=== PATIENT | male | born 1945 | race Caucasian/White ===

== ENCOUNTER → 2016-12-27 | Outpatient (CLI) | payer MEDICARE ==
[2016-12-27 18:05] LABS: Anion Gap 14 mmol/L; Blood Urea Nitrogen 19 mg/dL (9-20); Calcium 9.2 mg/dL (8.4-10.2); Carbon Dioxide 24 mmol/L (22-30); Chloride 100 mmol/L (98-107); Glucose 326 mg/dL (74-99); Non-African American GFR(MDRD) >60 (>60 ml/min/1.73 sqM); Potassium 3.9 mmol/L (3.5-5.1); Sodium 138 mmol/L (137-145)
--- NOTE | 2016-12-27 22:01 | CT ---
EXAMINATION TYPE: CT soft tissue neck w con DATE OF EXAM: 12/27/2016 6:46 PM COMPARISON: NONE HISTORY: 71-year-old male follow up nodules on remaining half of thyroid TECHNIQUE: Contiguous axial scanning of the neck performed with IV Contrast, patient injected with 10 0 mL of Omnipaque 350. Coronal/sagittal reconstructions performed. CT DLP: 437.6 mGycm Automated exposure control for dose reduction was used. 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 Visualized upper lungs are cl ear. Visualized intracranial structures, orbits and globes, paranasal sinuses, and mastoid air cells withi n normal limits. There is rightward nasal septal deviation. The nasopharynx is within normal limits. Mild hypertrophy of the bilateral palatine tonsils with punc reeves calcifications suggesting sequela of prior infection. Oropharynx otherwise clear. Slight asymmetry to the left aryepiglottic fold likely positional. Glottic and subglottic structures within normal limits. There is leftward bowing of the tracheal column due to large goiterous right lobe of the thyroid glan d. Postsurgical changes are seen along the left side of the neck of left thyroidectomy. The right lobe measures 5.5 cm wide by 5.1 cm AP by 9.4 cm craniocaudal and shows heterogeneous enhan cement with underlying cystic nodules and enhancing nodules. There is minimal 7 - 8 mm extension below the superior margin of the sternal notch. Scattered nonenlarged cervical lymph nodes are present. The submandibular and parotid glands are satisfactory. Moderate disc/endplate degenerative change mid to lower cervical spine. IMPRESSION: 1. BULKY MULTINODULAR RIGHT LOBE OF THE THYROID GLAND MEASURING UP TO 9.4 CM CAUSING MASS EFFECT AND LEFTWARD DEVIATION OF THE TRACHEA. THIS HAS MINIMAL 7 TO 8 MM OF EXTENSION BELOW THE SUPERIOR MARGIN OF THE STERNAL NOTCH. 2. STATUS POST LEFT THYROIDECTOMY.
== END | disposition home or self-care (01) ==
LOC: RADCTMAIN 17:24
PROVIDERS: ATTEND Surgery
DX: E04.2 Nontoxic multinodular goiter (principal); E07.89 Other specified disorders of thyroid; E89.0 Postprocedural hypothyroidism
CPT/HCPCS: 80048; 70491; Q9967

== ENCOUNTER 2017-02-27 19:32 | Emergency (ER) | payer MEDICARE ==
--- NOTE | 2017-02-27 20:19 | ED ---
General Adult HPI - General Chief complaint: Urogenital Stated complaint: catheter leaking Time Seen by Provider: 02/27/17 20:03 Source: patient, RN notes reviewed Mode of arrival: ambulatory Limitations: no limitations - History of Present Illness Initial comments: 71-year-old male presents to the emergency Department chief complaint of leaking urine around the catheter site. The patient states that he underwent thyroid accident yesterday. [facility]. Patient states he was having some difficulty urinating so they placed a catheter in before he was discharged today and he states that on his way home he noticed that it was leaking. Patient states that he called the hospital mainly referred here to have a new catheter placed. Patient states he does have some lower abdominal pain associated with this. Patient was found to be febrile here but he states that he has had no fever like symptoms. When asked about cough he states that he has had some phlegm. Patient denies any recent shortness of breath, chest pain, back pain, nnausea vomiting, numbness or tingling, hematuria, constipation or diarrhea, headaches or visual changes, or any other current symptoms. - Related Data Home Medications Medication Instructions Recorded Confirmed Aspirin 81 mg PO DAILY 02/27/17 02/27/17 Calcium Carbonate [Calcium] 600 mg PO BID 02/27/17 02/27/17 Levothyroxine Sodium [Synthroid] 150 mcg PO DAILY 02/27/17 02/27/17 Losartan/Hydrochlorothiazide 1 tab PO DAILY 02/27/17 02/27/17 [Losartan-Hctz 100-25 mg Tab] Metoprolol Succinate [Toprol XL] 37.5 mg PO DAILY 02/27/17 02/27/17 Tamsulosin HCl [Flomax] 0.4 mg PO DAILY 02/27/17 02/27/17 metFORMIN HCL [Glucophage] 500 mg PO BID 02/27/17 02/27/17 Previous Rx's Medication Instructions Recorded Levofloxacin [Levaquin] 500 mg PO DAILY #7 tab 02/27/17 Allergies Allergy/AdvReac Type Severity Reaction Status Date / Time Iodinated Contrast- Oral and Allergy Unknown Verified 02/27/17 19:58 IV Dye amoxicillin [From Augmentin] AdvReac Confusion Verified 02/27/17 19:58 clavulanic acid AdvReac Confusion Verified 02/27/17 19:58 [From Augmentin] iodine AdvReac Rash/Hives Verified 02/27/17 19:58 Sulfa (Sulfonamide AdvReac Rash/Hives Verified 02/27/17 19:58 Antibiotics) Review of Systems ROS Statement: Those systems with pertinent positive or pertinent negative responses have been documented in the HPI. ROS Other: All systems not noted in ROS Statement are negative. Past Medical History Past Medical History: Hypertension, Thyroid Disorder History of Any Multi-Drug Resistant Organisms: None Reported Additional Past Surgical History / Comment(s): thyroid surgery, MOIS surgery for skin cancer on face. Past Psychological History: No Psychological Hx Reported Smoking Status: Never smoker Past Alcohol Use History: None Reported Past Drug Use History: None Reported General Exam - General Exam Comments Initial Comments: General: The patient is awake and alert, in no distress, and does not appear acutely ill. Eye: Pupils are equal, round and reactive to light, extra-ocular movements are intact; there is normal conjunctiva bilaterally. No signs of icterus. Ears, nose, mouth and throat: There are moist mucous membranes and no oral lesions. Neck: The neck is supple, there is no tenderness. Thyroid incision noted with no associated erythema or drainage Cardiovascular: There is a regular rate and rhythm. No murmur, rub or gallop is appreciated. Respiratory: Lungs are clear to auscultation, respirations are non-labored, breath sounds are equal. No wheezes, stridor, rales, or rhonchi. Gastrointestinal: Soft, non-distended, non-tender abdomen without masses or organomegaly noted. There is no rebound or guarding present. No CVA tenderness. Bowel sounds are unremarkable. Back: There is no tenderness to palpation in the midline. There is no obvious deformity. No rashes noted. Musculoskeletal: Normal ROM, no tenderness, There is no pedal edema. There is no calf tenderness or swelling. Sensation intact. Pulses equal bilaterally 2+. Neurological: CN II-XII intact, There are no obvious motor or sensory deficits. Coordination appears grossly intact. Speech is normal. Skin: Skin is warm and dry and no rashes or lesions are noted. Psychiatric: Cooperative, appropriate mood & affect, normal judgment. Limitations: no limitations Course Vital Signs 02/27/17 19:40 Temperature 101.4 F H Pulse Rate 84 Respiratory 18 Rate Blood Pressure 198/88 O2 Sat by Pulse 94 L Oximetry Medical Decision Making - Medical Decision Making 71-year-old male presents for leaking around catheter site. Patient is found have a fever here as well. This time there is question of the fever is due to a possible UTI versus just reaction due to the recent procedure. At this time we will start patient on Levaquin due to the bacteria that is found in his urine with a straight catheterization. The patient is in agreement with plan all questions have been answered. This time he will be discharged. We discussed close follow-up and he stated that he understood. - Lab Data Lab Results 02/27/17 Range/Units 20:01 Urine Color Yellow Urine Appearance Clear (Clear) Urine pH 6.0 (5.0-8.0) Ur Specific [place] 1.013 (1.001-1.035) Urine Protein 1+ H (Negative) Urine Glucose (UA) Negative (Negative) Urine Ketones Negative (Negative) Urine Blood Moderate H (Negative) Urine Nitrite Negative (Negative) Urine Bilirubin Negative (Negative) Urine Urobilinogen <2.0 (<2.0) mg/dL Ur Leukocyte Esterase Large H (Negative) Urine RBC 71 H (0-5) /hpf Urine WBC 29 H (0-5) /hpf Ur Squamous Epith Cells <1 (0-4) /hpf Urine Bacteria Rare H (None) /hpf Urine Mucus Rare H (None) /hpf - Radiology Data Radiology results: report reviewed, image reviewed Disposition Clinical Impression: UTI (urinary tract infection), Catheter (urine) change required Disposition: HOME SELF-CARE Condition: Stable Instructions: Urinary Tract Infection in Men (ED) Additional Instructions: Please use medication as discussed. Please follow up with family doctor if symptoms have not improved over the next two days. Please return to the emergency room if your symptoms increase or worsen or for any other concerns. Prescriptions: Levofloxacin [Levaquin] 500 mg PO DAILY #7 tab Referrals: Bradford Ceron DO [Primary Care Provider] - 1-2 days Time of Disposition: 20:58
[2017-02-27 20:47] LABS: Appearance,Urine Clear (Clear); Bacteria,Urine Rare /hpf; Bilirubin,Urine Negative (Negative); Glucose,Urine (UA) Negative (Negative); Ketones,Urine Negative (Negative); Leukocyte Esterase,Urine Large (Negative); Mucus,Urine Rare /hpf; Nitrite,Urine Negative (Negative); Particle Count 8532; Protein,Urine 1+ (Negative); RBC,Urine 71 /hpf (0-5); Specific Gravity,Urine 1.013 (1.001-1.035); Squamous Epithelial Cell,Urine <1 /hpf (0-4); UA Billing (MACRO vs. MICRO) MICRO; Urobilinogen,Urine <2.0 mg/dL (<2.0); WBC,Urine 29 /hpf (0-5)
--- NOTE | 2017-02-27 20:53 | XR ---
EXAMINATION TYPE: XR chest 2V DATE OF EXAM: 02/27/2017 COMPARISON: NONE HISTORY: Chest pain and fever and cough TECHNIQUE: Frontal and lateral views of the chest are obtained. FINDINGS: There is mild linear density in the right midlung and left lung base. There is no heart fa ilure. Thoracic aorta is atheromatous. Heart size is normal. There is mild spurring in the thoracic s pine. IMPRESSION: Bilateral mild scarring or subsegmental atelectasis. No heart failure. No evidence of br onchopneumonia.
[2017-02-27] MEDS ORDERED: ACETAMINOPHEN TAB 500 MG TAB PO STA (21:08)
[2017-02-27 21:24] VITALS: BP 169/76; PULSE 72; RESP 20; TEMP 101.8
== END 2017-02-27 21:20 | disposition home or self-care (01) ==
LOC: EC 19:32
DX: N39.0 Urinary tract infection, site not specified (principal); T83.038A Leakage of other urinary catheter, initial encounter; R50.9 Fever, unspecified; I10 Essential (primary) hypertension; E07.9 Disorder of thyroid, unspecified; Z79.82 Long term (current) use of aspirin; Z79.84 Long term (current) use of oral hypoglycemic drugs; Z79.899 Other long term (current) drug therapy; Z88.0 Allergy status to penicillin; Z88.2 Allergy status to sulfonamides; Z91.041 Radiographic dye allergy status; Z91.09 Other allergy status, other than to drugs and biological substances; Z85.828 Personal history of other malignant neoplasm of skin; Z98.890 Other specified postprocedural states; Y73.8 Miscellaneous gastroenterology and urology devices associated with adverse incidents, not elsewhere classified
CPT/HCPCS: 51702; 71020; 81001; 87086; 99283

== ENCOUNTER 2017-12-09 18:13 | Emergency (ER) | payer MEDICARE ==
[2017-12-09] MEDS ORDERED: ONDANSETRON ODT 4 MG TAB PO STA (19:28)
[2017-12-09] MEDS ORDERED: MECLIZINE 12.5 MG TAB PO STA (19:28)
[2017-12-09] MEDS ORDERED: SODIUM CHLORIDE 0.9% 1,000 ML IV STA (19:28)
[2017-12-09 19:41] LABS: Basophils % (A) 0 %; Eosinophils # (A) 0.1 k/uL (0-0.7); Eosinophils % (A) 2 %; HCT 39.9 % (39.0-53.0); HGB 13.7 gm/dL (13.0-17.5); Lymphocytes # (A) 1.4 k/uL (1.0-4.8); Lymphocytes % (A) 17 %; MCH 29.2 pg (25.0-35.0); MCHC 34.3 g/dL (31.0-37.0); MCV 85.2 fL (80.0-100.0); Mean Platelet Volume 7.5; Monocytes # (A) 0.5 k/uL (0-1.0); Monocytes % (A) 6 %; Neutrophils % (A) 74 %; Platelet Count 247 k/uL (150-450); RBC 4.69 m/uL (4.30-5.90); RDW 12.9 % (11.5-15.5); WBC 8.1 k/uL (3.8-10.6)
--- NOTE | 2017-12-09 19:43 | ED ---
General Adult HPI - General Chief complaint: Dizziness Stated complaint: off balance/nausea Time Seen by Provider: 12/09/17 19:17 Source: patient, RN notes reviewed Mode of arrival: wheelchair Limitations: no limitations - History of Present Illness Initial comments: Patient 72-year-old male presents to the emergency room today with chief complaint of dizziness. He states that he's felt unsteady today. He does admit that over the last 5 weeks has had episodes. He states there were only lasted a few seconds at a time. He states that today starting at 5:00 he's had episode of feeling unsteady and like he cannot walk straight. He does with his maternal on stress lately. He states he had to deal with his son who got diagnosed with a PE. He states this is the reason that he was unable to follow- up the family doctor over the last 5 weeks for the symptoms himself. Patient does not that he had an episode of nausea vomiting earlier today. He denies any other complains. He states that it symptoms are worse with certain movements specifically with a movement to the right with his head with rotation. States worse when up and trying to walk better when laying down. Currently asymptomatic as he is laying in stretcher. Patient denies any recent fever, chills, shortness of breath, chest pain, back pain, abdominal pain, nausea or vomiting, numbness or tingling, dysuria or hematuria, constipation or diarrhea, headaches or visual changes, or any other complaints. - Related Data Home Medications Medication Instructions Recorded Confirmed Aspirin 81 mg PO DAILY 02/27/17 12/09/17 Levothyroxine Sodium [Synthroid] 150 mcg PO DAILY 02/27/17 12/09/17 Losartan/Hydrochlorothiazide 1 tab PO DAILY 02/27/17 12/09/17 [Losartan-Hctz 100-25 mg Tab] Metoprolol Succinate [Toprol XL] 37.5 mg PO DAILY 02/27/17 12/09/17 Tamsulosin HCl [Flomax] 0.4 mg PO DAILY 02/27/17 12/09/17 Calcium Carbonate/Vitamin D3 1 tab PO DAILY 12/09/17 12/09/17 [Calcium 500-Vit D3 600 Tablet] Allergies Allergy/AdvReac Type Severity Reaction Status Date / Time Iodinated Contrast- Oral and Allergy Unknown Verified 12/09/17 19:40 IV Dye amoxicillin [From Augmentin] AdvReac Confusion Verified 12/09/17 19:40 clavulanic acid AdvReac Confusion Verified 12/09/17 19:40 [From Augmentin] iodine AdvReac Rash/Hives Verified 12/09/17 19:40 Sulfa (Sulfonamide AdvReac Rash/Hives Verified 12/09/17 19:40 Antibiotics) Review of Systems ROS Statement: Those systems with pertinent positive or pertinent negative responses have been documented in the HPI. ROS Other: All systems not noted in ROS Statement are negative. Past Medical History Past Medical History: Hypertension, Thyroid Disorder History of Any Multi-Drug Resistant Organisms: None Reported Additional Past Surgical History / Comment(s): thyroid removed, MOIS surgery for skin cancer on face. Past Psychological History: No Psychological Hx Reported Smoking Status: Never smoker Past Alcohol Use History: None Reported Past Drug Use History: None Reported General Exam - General Exam Comments Initial Comments: General: The patient is awake and alert, in no distress, and does not appear acutely ill. Eye: Pupils are equal, round and reactive to light, extra-ocular movements are intact. No nystagmus. There is normal conjunctiva bilaterally. No signs of icterus. Ears, nose, mouth and throat: There are moist mucous membranes and no oral lesions. Neck: The neck is supple, there is no tenderness or JVD. Cardiovascular: There is a regular rate and rhythm. No murmur, rub or gallop is appreciated. Respiratory: Lungs are clear to auscultation, respirations are non-labored, breath sounds are equal. No wheezes, stridor, rales, or rhonchi. Gastrointestinal: Soft, non-distended, non-tender abdomen without masses or organomegaly noted. There is no rebound or guarding present. No CVA tenderness. Bowel sounds are unremarkable. Musculoskeletal: Normal ROM, no tenderness. Strength 5/5. Sensation intact. Pulses equal bilaterally 2+. Neurological: A&O x 3. CN II-XII intact, There are no obvious motor or sensory deficits. Coordination appears grossly intact. Speech is normal. Skin: Skin is warm and dry and no rashes or lesions are noted. Psychiatric: Cooperative, appropriate mood & affect, normal judgment. Limitations: no limitations Course Vital Signs 12/09/17 12/09/17 12/09/17 18:26 19:33 20:35 Temperature 98.8 F 97.9 F Pulse Rate 79 57 L 57 L Respiratory 18 18 16 Rate Blood Pressure 216/113 173/81 182/84 O2 Sat by Pulse 98 95 95 Oximetry 12/09/17 21:43 Temperature 98.0 F Pulse Rate 56 L Respiratory 14 Rate Blood Pressure 182/80 O2 Sat by Pulse 96 Oximetry Medical Decision Making - Medical Decision Making Patient reexamined at this time shows no signs of distress. He does admit to improvement after meclizine and Zofran here in the emergency room. Patient has been ambulatory here the emergency room for difficulty. Patient's CT and CTA reviewed are negative. Labs been reviewed. Options were discussed with patient. States he admitted rather follow-up the family physician tomorrow. Patient will be given a prescription for meclizine. He is advised close follow- up or return here to the emergency room symptoms increase worsen. - Lab Data Result diagrams: 12/09/17 19:21 12/09/17 19:21 Lab Results 12/09/17 12/09/17 12/09/17 Range/Units 19:21 19:21 19:21 WBC 8.1 (3.8-10.6) k/uL RBC 4.69 (4.30-5.90) m/uL Hgb 13.7 (13.0-17.5) gm/dL Hct 39.9 (39.0-53.0) % MCV 85.2 (80.0-100.0) fL MCH 29.2 (25.0-35.0) pg MCHC 34.3 (31.0-37.0) g/dL RDW 12.9 (11.5-15.5) % Plt Count 247 (150-450) k/uL Neutrophils % 74 % Lymphocytes % 17 % Monocytes % 6 % Eosinophils % 2 % Basophils % 0 % Neutrophils # 6.0 (1.3-7.7) k/uL Lymphocytes # 1.4 (1.0-4.8) k/uL Monocytes # 0.5 (0-1.0) k/uL Eosinophils # 0.1 (0-0.7) k/uL Basophils # 0.0 (0-0.2) k/uL PT (9.0-12.0) sec INR (<1.2) APTT (22.0-30.0) sec Sodium 141 (137-145) mmol/L Potassium 3.5 (3.5-5.1) mmol/L Chloride 99 (98-107) mmol/L Carbon Dioxide 29 (22-30) mmol/L Anion Gap 13 mmol/L BUN 16 (9-20) mg/dL Creatinine 0.91 (0.66-1.25) mg/dL Est GFR (CKD-EPI)AfAm >90 (>60 ml/min/1.73 sqM) Est GFR (CKD-EPI)NonAf 84 (>60 ml/min/1.73 sqM) Glucose 173 H (74-99) mg/dL Calcium 8.9 (8.4-10.2) mg/dL Total Bilirubin 0.7 (0.2-1.3) mg/dL AST 16 L (17-59) U/L ALT 26 (21-72) U/L Alkaline Phosphatase 56 (38-126) U/L Total Creatine Kinase 93 (55-170) U/L CK-MB (CK-2) 1.1 (0.0-2.4) ng/mL CK-MB (CK-2) Rel Index 1.2 Troponin I <0.012 (0.000-0.034) ng/mL Total Protein 6.5 (6.3-8.2) g/dL Albumin 3.9 (3.5-5.0) g/dL 12/09/17 Range/Units 19:21 WBC (3.8-10.6) k/uL RBC (4.30-5.90) m/uL Hgb (13.0-17.5) gm/dL Hct (39.0-53.0) % MCV (80.0-100.0) fL MCH (25.0-35.0) pg MCHC (31.0-37.0) g/dL RDW (11.5-15.5) % Plt Count (150-450) k/uL Neutrophils % % Lymphocytes % % Monocytes % % Eosinophils % % Basophils % % Neutrophils # (1.3-7.7) k/uL Lymphocytes # (1.0-4.8) k/uL Monocytes # (0-1.0) k/uL Eosinophils # (0-0.7) k/uL Basophils # (0-0.2) k/uL PT 10.1 (9.0-12.0) sec INR 1.0 (<1.2) APTT 22.0 (22.0-30.0) sec Sodium (137-145) mmol/L Potassium (3.5-5.1) mmol/L Chloride (98-107) mmol/L Carbon Dioxide (22-30) mmol/L Anion Gap mmol/L BUN (9-20) mg/dL Creatinine (0.66-1.25) mg/dL Est GFR (CKD-EPI)AfAm (>60 ml/min/1.73 sqM) Est GFR (CKD-EPI)NonAf (>60 ml/min/1.73 sqM) Glucose (74-99) mg/dL Calcium (8.4-10.2) mg/dL Total Bilirubin (0.2-1.3) mg/dL AST (17-59) U/L ALT (21-72) U/L Alkaline Phosphatase (38-126) U/L Total Creatine Kinase (55-170) U/L CK-MB (CK-2) (0.0-2.4) ng/mL CK-MB (CK-2) Rel Index Troponin I (0.000-0.034) ng/mL Total Protein (6.3-8.2) g/dL Albumin (3.5-5.0) g/dL Disposition Clinical Impression: Lightheaded Disposition: HOME SELF-CARE Condition: Good Instructions: Dizziness (ED) Additional Instructions: Please use medication as discussed. Please follow-up with family doctor tomorrow. Please return to emergency room if the symptoms increase or worsen or for any other concerns. Is patient prescribed a controlled substance at d/c from ED?: No Referrals: Bradford Ceron DO [Primary Care Provider] - 1-2 days Time of Disposition: 22:07
[2017-12-09 19:50] LABS: ALT 26 U/L (21-72); AST 16 U/L (17-59); Albumin 3.9 g/dL (3.5-5.0); Alkaline Phosphatase 56 U/L (38-126); Anion Gap 13 mmol/L; Blood Urea Nitrogen 16 mg/dL (9-20); Calcium 8.9 mg/dL (8.4-10.2); Carbon Dioxide 29 mmol/L (22-30); Chloride 99 mmol/L (98-107); Glucose 173 mg/dL (74-99); Potassium 3.5 mmol/L (3.5-5.1); Sodium 141 mmol/L (137-145); Total Bilirubin 0.7 mg/dL (0.2-1.3); Total Protein 6.5 g/dL (6.3-8.2)
[2017-12-09 19:52] LABS: Creatine Kinase 93 U/L (55-170)
--- NOTE | 2017-12-09 20:02 | CT ---
EXAMINATION TYPE: CT brain wo con DATE OF EXAM: 12/09/2017 COMPARISON: NONE HISTORY: Dizziness. CT DLP: [address] of the brain was performed. The ventricles, basal cisterns and sulci overlying the cerebral convexities demonstrate mild enlargem ent. There is no evidence for intracranial hemorrhage or sulcal effacement. There is decreased attenuation about the periventricular white matter and deep white matter of both c erebral hemispheres, compatible with chronic small vessel ischemia. Differential diagnosis does inclu de demyelination. No mass effects are seen.No midline shift. Osseous calvarium is intact. If symptoms persist consider MRI. IMPRESSION: 1. Age related atrophic and chronic small vessel ischemic change without acute intracranial process s een at this time.
[2017-12-09 20:06] LABS: Creatine Kinase MB 1.1 ng/mL (0.0-2.4); Troponin I <0.012 ng/mL (0.000-0.034)
--- NOTE | 2017-12-09 20:07 | XR ---
EXAMINATION TYPE: XR chest 2V DATE OF EXAM: 12/09/2017 COMPARISON: 02/27/2017 HISTORY: Shortness of breath TECHNIQUE: Frontal and lateral views of the chest are obtained. FINDINGS: Scattered senescent parenchymal changes noted. No evidence for infiltrate. No evidence for atelectasis. Heart size is stable. Mediastinal structures are stable and grossly unremarkable. No evidence for hilar prominence. Degenerative changes dorsal spine. IMPRESSION: 1. No evidence for acute pulmonary disease.
[2017-12-09 20:28] LABS: Prothrombin Time 10.1 sec (9.0-12.0)
[2017-12-09] MEDS ORDERED: FAMOTIDINE 20 MG/2 ML VIAL IV STA (20:30)
[2017-12-09] MEDS ORDERED: diphenhydrAMINE 50 MG/ML 1 ML VIAL IVP STA (20:30)
[2017-12-09] MEDS ORDERED: methylPREDNISolone SOD SUCCI 125 MG/2 ML VIAL IV STA (20:30)
[2017-12-09] MEDS ORDERED: RX INFO: IV CONTRAST WAS GIVEN 1 EACH MISC MISCELLANE PRN (20:30)
[2017-12-09 21:44] VITALS: RESP 14
--- NOTE | 2017-12-09 21:46 | CT ---
EXAMINATION TYPE: CT angio head neck DATE OF EXAM: 12/09/2017 COMPARISON: NONE HISTORY: CT DLP: mGycm CONTRAST: Performed , patient injected with mL of . Combination Contrast CTA cervical carotids and [place] CTA cervical carotids with 3-D recons truction Contrast CTA of the cervical carotids was performed 3-D reconstruction imaging obtained at a separate workstation. Right carotid system: Mild plaque is seen of the right common carotid artery. There is mild plaque a lso noted at the carotid bulb and proximal ICA. No significant diameter reduction. ECA is patent. Right vertebral artery appears unremarkable. Left carotid system: Mild plaque is seen of the left common carotid artery. There is mild plaque als o noted at the carotid bulb and proximal ICA. No significant diameter reduction. ECA is patent. Lef t vertebral artery appears unremarkable. IMPRESSION: 1. No significant diameter reduction to account for the patient's symptoms. CTA [place] with 3-D reconstruction Contrast CTA of the [place] was performed 3-D reconstruction imaging obtained at a separate workstation. Vertebrobasilar system as well as intracranial portions of the internal carotid arteries and their [place] tributaries are patent. I do not see evidence for sizable aneurysm or vascular malformation. Pl ease note MRI provides greater sensitivity and specificity. Visualized brain appears grossly unremar kable. IMPRESSION: 1. No siginificant abnormality.
[2017-12-09 22:24] VITALS: BP 175/86; PULSE 57; TEMP 98
== END 2017-12-09 22:25 | disposition home or self-care (01) ==
LOC: EC 18:13
DX: E07.9 Disorder of thyroid, unspecified (principal); R11.0 Nausea; I10 Essential (primary) hypertension; Z88.2 Allergy status to sulfonamides; Z88.0 Allergy status to penicillin; Z91.048 Other nonmedicinal substance allergy status; Z88.8 Allergy status to other drugs, medicaments and biological substances; Z79.82 Long term (current) use of aspirin; Z79.899 Other long term (current) drug therapy; R42 Dizziness and giddiness
CPT/HCPCS: 99284; 96374; 96375 ×2; 96361; 36415; 93005; 80053; 82550; 82553; 84484; 85025; 85610; 85730; 71046; 70496; 70450; 70498; J1200; J2930; Q9967